=== PATIENT | male | born 1955 | race Caucasian/White ===

== ENCOUNTER 2021-04-26 09:25 | Day surgery (SDC) | payer MEDICARE ==
[~2021-04-26] VITALS: Ht 182.9 cm; Wt 109.9 kg
[2021-04-26] VITALS (8 sets, daily range): BP systolic 143–180; BP diastolic 95–121
[2021-04-26] MEDS ORDERED: sodium bicarbonate (8.4%) inj. 150 ML in dextrose 5%-water 1,000 ML IV ONE (10:05)
[2021-04-26] MEDS ORDERED: diphenhydrAMINE 25mg capsule PO PRN (10:05)
[2021-04-26] MEDS ORDERED: normal saline 1,000 ML IV SCH (10:05)
[2021-04-26 10:53] LABS: BASOPHILS # (AUTO) 0.1 X10'3 (0-0.2); BASOPHILS % (AUTO) 0.9 % (0-1); EOSINOPHILS # (AUTO) 0.2 X10'3 (0-0.9); EOSINOPHILS % (AUTO) 2.5 % (0-6); HEMATOCRIT 44.7 % (42.0-52.0); HEMOGLOBIN 15.3 g/dl (14.0-17.9); LYMPHOCYTES # (AUTO) 1.5 X10'3 (1.1-4.8); LYMPHOCYTES % (AUTO) 20.3 % (21-51); MEAN CORPUSCULAR HEMOGLOBIN 31.2 PG (27.0-31.0); MEAN CORPUSCULAR HGB CONC 34.3 g/dL (33.0-36.5); MEAN CORPUSCULAR VOLUME 90.9 FL (78-98); MEAN PLATELET VOLUME 8.4 FL (7.4-10.4); MONOCYTES # (AUTO) 0.6 X10'3 (0-0.9); MONOCYTES % (AUTO) 7.9 % (2-12); NEUTROPHILS # (AUTO) 4.9 X10'3 (1.8-7.7); NEUTROPHILS % (AUTO) 68.4 % (42-75); PLATELET COUNT 210 X10'3 (140-440); RED BLOOD COUNT 4.92 X10'6 (4.70-6.10); RED CELL DISTRIBUTION WIDTH 14.1 % (11.5-14.5); WHITE BLOOD COUNT 7.2 X10'3 (4.5-11.0)
[2021-04-26 10:59] LABS: ALBUMIN 3.7 G/DL (3.4-5.0); ANION GAP 11 (8-16); BLOOD UREA NITROGEN 12 MG/DL (7-18); CALCIUM 8.4 MG/DL (8.5-10.1); CHLORIDE 108 MMOL/L (99-107); CREATININE 0.86 MG/DL (0.60-1.10); GLUCOSE 97 MG/DL (70-104); MAGNESIUM 1.9 MG/DL (1.5-2.4); POTASSIUM 3.5 MMOL/L (3.5-5.1); SODIUM 145 MMOL/L (135-145); TOTAL CARBON DIOXIDE 25.9 MMOL/L (24-32); eGFR 89 ML/MIN
[2021-04-26] MEDS ORDERED: ASPI-611 PO (11:00)
[2021-04-26] MEDS ORDERED: LOSA50TA3 PO (11:00)
[2021-04-26] MEDS ORDERED: AMLO10TA53 PO (11:00)
[2021-04-26] MEDS ORDERED: METO25TA6 PO (11:00)
[2021-04-26] MEDS ORDERED: ROSU40TA22 PO (11:00)
[2021-04-26] MEDS ORDERED: fentaNYL/PF 50MCG/1 ML 2ML syringe ONE (13:06)
[2021-04-26] MEDS ORDERED: midazolam 1 mg/ML 2ml injection ONE ×3 (13:06→14:25)
[2021-04-26] MEDS ORDERED: iohexol 350 MG/ML 50ML vial IV ONE (13:07)
[2021-04-26] MEDS ORDERED: iohexol 350MG/ML 100ml bottle IV ONE (13:07)
[2021-04-26] MEDS ORDERED: heparin 1,000unit/ml 10ml vial 10 ML ONE ×2 (13:07→14:25)
[2021-04-26] MEDS ORDERED: LIDOcaine 1% (10mg/ml)w/preservative injection 20ml MDV ONE (13:07)
[2021-04-26] MEDS ORDERED: iohexol 350 MG/1 ML 200ml bottle ONE (14:00)
[2021-04-26] MEDS ORDERED: clopidogrel 300mg tablet ONE (14:53)
[2021-04-26] MEDS ORDERED: normal saline 1000ml 1,000 ML IV SCH (15:35)
[2021-04-26] MEDS ORDERED: HYDROcodone/acetaminophen 5mg/325mg tablet PO PRN (15:35)
[2021-04-26] MEDS ORDERED: OXAZEpam 15mg capsule PO PRN (15:35)
[2021-04-26] MEDS ORDERED: proCHLORperazine 10 MG/2 ml inj IV PRN (15:35)
[2021-04-26] MEDS ORDERED: ondansetron/PF 4mg/2ml inj IV PRN (15:35)
[2021-04-26] MEDS ORDERED: HYDROcodone/acetaminophen 10/325mg tab PO PRN (15:35)
== END 2021-04-26 18:11 | disposition home or self-care (01) ==
LOC: SSTAY O 09:25
PROVIDERS: ATTEND Internal Medicine Cardiovascular Disease
DX: R94.39 Abnormal result of other cardiovascular function study (principal); I25.118 Atherosclerotic heart disease of native coronary artery with other forms of angina pectoris; I25.2 Old myocardial infarction; E78.5 Hyperlipidemia, unspecified; I10 Essential (primary) hypertension; M06.9 Rheumatoid arthritis, unspecified; Z79.82 Long term (current) use of aspirin; Z79.899 Other long term (current) drug therapy; Z95.5 Presence of coronary angioplasty implant and graft; Z98.890 Other specified postprocedural states; Z89.429 Acquired absence of other toe(s), unspecified side; Z72.89 Other problems related to lifestyle; Z88.8 Allergy status to other drugs, medicaments and biological substances; Z82.49 Family history of ischemic heart disease and other diseases of the circulatory system; Z80.9 Family history of malignant neoplasm, unspecified
CPT/HCPCS: 36415; 80048; 83735; 85025; 85610; 93005; 93458; 99152; 99153; C1725; C1751; C1760; C1769; C1874; C1894; C9600; J1644; J2001; J2250; J3010; J7030; Q0163; Q9967; A4620

== ENCOUNTER 2022-11-28 08:08 | Day surgery (SDC) | payer MEDICARE ==
[~2022-11-28] VITALS: Ht 180.3 cm; Wt 107.6 kg
[2022-11-28] VITALS (10 sets, daily range): BP systolic 114–142; BP diastolic 71–96
[~2022-11-28 08:08] MED LIST: AMLO10TA53 PO; ASPI-611 PO; LOSA50TA3 PO; METO25TA6 PO; ROSU40TA22 PO
[2022-11-28] MEDS ORDERED: diphenhydrAMINE 25mg capsule PO PRN (08:30)
[2022-11-28] MEDS ORDERED: normal saline 1,000 ML IV SCH (08:30)
[2022-11-28] MEDS ORDERED: CLOP75TA34 PO (08:36)
[2022-11-28 09:33] LABS: BASOPHILS # (AUTO) 0.1 X10'3 (0-0.2); BASOPHILS % (AUTO) 0.9 % (0-1); EOSINOPHILS # (AUTO) 0.1 X10'3 (0-0.9); EOSINOPHILS % (AUTO) 1.6 % (0-6); HEMATOCRIT 42.1 % (42.0-52.0); HEMOGLOBIN 14.6 g/dl (14.0-17.9); LYMPHOCYTES # (AUTO) 1.2 X10'3 (1.1-4.8); LYMPHOCYTES % (AUTO) 15.8 % (21-51); MEAN CORPUSCULAR HEMOGLOBIN 30.9 PG (27.0-31.0); MEAN CORPUSCULAR HGB CONC 34.8 g/dL (33.0-36.5); MONOCYTES # (AUTO) 0.5 X10'3 (0-0.9); MONOCYTES % (AUTO) 6.1 % (2-12); NEUTROPHILS # (AUTO) 5.6 X10'3 (1.8-7.7); NEUTROPHILS % (AUTO) 75.6 % (42-75); PLATELET COUNT 198 X10'3 (140-440); RED BLOOD COUNT 4.73 X10'6 (4.70-6.10); WHITE BLOOD COUNT 7.4 X10'3 (4.5-11.0)
[2022-11-28 09:43] LABS: ALBUMIN 3.8 G/DL (3.4-5.0); ANION GAP 7 (8-16); BLOOD UREA NITROGEN 14 MG/DL (7-18); BUN/CREATININE RATIO 17.7 (5.4-32.0); CALCIUM 8.6 MG/DL (8.5-10.1); CHLORIDE 106 MMOL/L (99-107); CREATININE 0.79 MG/DL (0.60-1.10); GLUCOSE 108 MG/DL (70-104); MAGNESIUM 2.1 MG/DL (1.5-2.4); POTASSIUM 3.3 MMOL/L (3.5-5.1); SODIUM 141 MMOL/L (135-145); TOTAL CARBON DIOXIDE 28.1 MMOL/L (24-32); eGFR > 90 ML/MIN
[2022-11-28] MEDS ORDERED: verapamil 2.5 mg/ml inj IV ONE (10:30)
[2022-11-28] MEDS ORDERED: nitroGLYCERIN-Tridil 50MG/D5W 250 ML IV ONE (10:30)
[2022-11-28] MEDS ORDERED: fentaNYL/PF 50MCG/1 ML 2ML syringe ONE (10:30)
[2022-11-28] MEDS ORDERED: midazolam 1 mg/ML 2ml injection ONE ×2 (10:30→11:14)
[2022-11-28] MEDS ORDERED: heparin 1,000unit/ml 10ml vial 10 ML ONE (10:31)
[2022-11-28] MEDS ORDERED: iohexol 350MG/ML 100ml bottle IV ONE ×2 (10:31→11:32)
[2022-11-28] MEDS ORDERED: LIDOcaine 1% (10mg/ml) 2ml vial ONE (10:31)
[2022-11-28] MEDS ORDERED: iohexol 350 MG/ML 50ML vial IV ONE (10:31)
[2022-11-28] MEDS ORDERED: potassium Cl 20 mEq SR tablet PO STA (10:38)
[2022-11-28] MEDS ORDERED: LIDOcaine 1% 30ml preserv. free vial ONE (11:22)
[2022-11-28] MEDS ORDERED: proCHLORperazine 10 MG/2 ml inj IV PRN (12:55)
[2022-11-28] MEDS ORDERED: HYDROcodone/acetaminophen 5mg/325mg tablet PO PRN (12:55)
[2022-11-28] MEDS ORDERED: HYDROcodone/acetaminophen 10/325mg tab PO PRN (12:55)
[2022-11-28] MEDS ORDERED: ondansetron/PF 4mg/2ml inj IV PRN (12:55)
[2022-11-28] MEDS ORDERED: normal saline 1000ml 1,000 ML IV SCH (12:55)
== END 2022-11-28 16:40 | disposition home or self-care (01) ==
LOC: SSTAY O 08:08
PROVIDERS: ATTEND Internal Medicine Cardiovascular Disease
DX: I25.118 Atherosclerotic heart disease of native coronary artery with other forms of angina pectoris (principal); I25.82 Chronic total occlusion of coronary artery; E78.5 Hyperlipidemia, unspecified; I10 Essential (primary) hypertension; I25.2 Old myocardial infarction; M06.9 Rheumatoid arthritis, unspecified; I87.2 Venous insufficiency (chronic) (peripheral); Z95.5 Presence of coronary angioplasty implant and graft; Z79.82 Long term (current) use of aspirin; Z79.899 Other long term (current) drug therapy; Z79.01 Long term (current) use of anticoagulants; Z88.8 Allergy status to other drugs, medicaments and biological substances; Z98.890 Other specified postprocedural states; Z89.412 Acquired absence of left great toe; Z72.89 Other problems related to lifestyle; Z82.49 Family history of ischemic heart disease and other diseases of the circulatory system
CPT/HCPCS: 36415; 80048; 83735; 85025; 85610; 93005; 93458; 99152; 99153; A6258; C1751; C1760; C1769; C1892; C1894; C9607; J1644; J2250; J3010; J3490; J7030; Q0163; Q9967; A6402

== ENCOUNTER 2025-02-21 06:33 | Day surgery (SDC) | payer MEDICARE ==
[~2025-02-21] VITALS: Ht 180.3 cm; Wt 100.4 kg
[2025-02-21] VITALS (11 sets, daily range): BP systolic 109–136; BP diastolic 72–84; PULSE 55–66; RESP 14–20; TEMP 98.5; O2SAT 92–97
[~2025-02-21 06:33] MED LIST changes: +CLOP75TA34 PO; +LOSA-416 PO; -LOSA50TA3 PO; -ROSU40TA22 PO; +ROSU40TA89 PO
[2025-02-21 07:47] LABS: ALBUMIN 3.7 G/DL (3.4-5.0); ANION GAP 10 (8-16); BLOOD UREA NITROGEN 12 MG/DL (7-18); CALCIUM 8.5 MG/DL (8.5-10.1); CHLORIDE 110 MMOL/L (99-107); CREATININE 0.92 MG/DL (0.60-1.10); GLUCOSE 95 MG/DL (70-104); MAGNESIUM 2.1 MG/DL (1.5-2.4); POTASSIUM 3.7 MMOL/L (3.5-5.1); PROTHROMBIN TIME 10.5 SECONDS (9.0-12.0); SODIUM 147 MMOL/L (135-145); TOTAL CARBON DIOXIDE 27.3 MMOL/L (24-32); eCRCL 80 ML/MIN; eGFR 81 ML/MIN
[2025-02-21] MEDS: normal saline 1,000 ML IV SCH (07:59)
[2025-02-21] MEDS: diphenhydrAMINE 25mg capsule PO PRN (08:00)
--- NOTE | 2025-02-21 08:00 | ELECTROCARDIOGRAPH REPORT ---
[facility] Test Date: 2025-02-21 Test Time: 07:57:10 Pat Name: SAL JIMENEZ Department: [facility] O Patient ID: [id number] Room: Gender: M Banquet Chef: JAIMEE : 1955 Requested By: ISABELLA RODRIGUEZ Order Number: [id number] Reading MD: Dr. ANDREAS Mane Measurements Intervals [place] Rate: 57 P: 19 SD: 200 QRS: -22 QRSD: 113 T: 49 QT: 433 QTc: 422 Interpretive Statements Sinus bradycardia Ventricular premature complex Borderline intraventricular conduction delay Borderline ST elevation, anterior leads Electronically Signed On 02-21-2025 19:49:[address] ANDREAS Mane Please click the below link to view image of tracing.
[2025-02-21 08:08] LABS: BASOPHILS % (AUTO) 0.8 % (0-1); EOSINOPHILS # (AUTO) 0.1 X10'3 (0-0.9); EOSINOPHILS % (AUTO) 2.5 % (0-6); HEMOGLOBIN 15.2 g/dl (14.0-17.9); LYMPHOCYTES # (AUTO) 1.4 X10'3 (1.1-4.8); LYMPHOCYTES % (AUTO) 29.5 % (21-51); MEAN CORPUSCULAR HEMOGLOBIN 31.1 PG (27.0-31.0); MEAN CORPUSCULAR HGB CONC 34.5 g/dL (33.0-36.5); MEAN CORPUSCULAR VOLUME 90.2 FL (78-98); MEAN PLATELET VOLUME 8.4 FL (7.4-10.4); MONOCYTES # (AUTO) 0.4 X10'3 (0-0.9); MONOCYTES % (AUTO) 9.1 % (2-12); NEUTROPHILS # (AUTO) 2.8 X10'3 (1.8-7.7); NEUTROPHILS % (AUTO) 58.1 % (42-75); PLATELET COUNT 211 X10'3 (140-440); RED BLOOD COUNT 4.88 X10'6 (4.70-6.10); RED CELL DISTRIBUTION WIDTH 13.9 % (11.5-14.5); WHITE BLOOD COUNT 4.9 X10'3 (4.5-11.0)
[2025-02-21] MEDS ORDERED: LOSA-415 PO (08:30)
[2025-02-21] MEDS ORDERED: AMLO-314 PO (08:30)
[2025-02-21] MEDS ORDERED: NITR0.4T48 SL (08:30)
[2025-02-21] MEDS ORDERED: FINA5TAB11 PO (08:30)
[2025-02-21] MEDS ORDERED: verapamil 2.5 mg/ml inj IV ONE (08:47)
[2025-02-21] MEDS ORDERED: LIDOcaine 1% (10mg/ml) 2ml vial ONE (08:47)
[2025-02-21] MEDS ORDERED: midazolam 1 mg/ML 2ml injection ONE ×2 (08:47→09:42)
[2025-02-21] MEDS ORDERED: fentaNYL/PF 50MCG/1 ML 2ML syringe ONE (08:47)
[2025-02-21] MEDS ORDERED: iohexol 350 MG/ML 50ML vial IV ONE ×2 (08:48→10:11)
[2025-02-21] MEDS ORDERED: iohexol 350MG/ML 100ml bottle IV ONE (08:48)
[2025-02-21] MEDS ORDERED: heparin 1,000unit/ml 10ml vial 10 ML ONE (08:48)
[2025-02-21] MEDS ORDERED: nitroGLYCERIN 500mcg/5mL D5W 5 ML IV ONE (08:48)
[2025-02-21] MEDS: sodium bicarbonate 1meq/ml syr 150 ML in dextrose 5%-water 1,000 ML IV ONE (08:55)
[2025-02-21] MEDS ORDERED: LIDOcaine 1% 30ml preserv. free vial ONE (09:30)
[2025-02-21] MEDS ORDERED: ondansetron/PF 4mg/2ml inj IV PRN (10:55)
[2025-02-21] MEDS ORDERED: HYDROcodone/acetaminophen 10/325mg tab PO PRN (10:55)
[2025-02-21] MEDS ORDERED: proCHLORperazine 10 MG/2 ml inj IV PRN (10:55)
[2025-02-21] MEDS ORDERED: HYDROcodone/acetaminophen 5mg/325mg tablet PO PRN (10:55)
--- NOTE | 2025-02-21 12:09 | CARDIOLOGY REPORT ---
DATE OF SERVICE: 02/21/2025 DICTATING PHYSICIAN: ISABELLA RODRIGUEZ DO CARDIAC CATHETERIZATION REPORT REFERRING PHYSICIAN: Danyelle Chacon MD CLINICAL HISTORY: This 70-year-old man has a rather prolonged history of coronary artery disease. He has had a previous AR and stents have been placed to two large LAD diagonals and to the distal right coronary artery. He also has a chronically occluded large obtuse marginal branch. He has had some recent recurrence of chest pain prompting this repeat angiographic study. PROCEDURES PERFORMED: * Left heart catheterization. * Left ventriculography. * Selective coronary arteriography. * Percutaneous arteriotomy closure (Perclose) * 60 minutes of conscious sedation supervision. DESCRIPTION OF PROCEDURE: The patient was sedated with fentanyl and Versed. He was then prepared and draped in the usual manner. The right inguinal area was infiltrated with 1% lidocaine using a micropuncture set and a Seldinger technique, a short 7-Luxembourgish sheath was placed in the common femoral artery. Later, because of tortuosity of the common iliac artery, the short sheath was replaced with a 45 cm destination sheath; 3000 units of heparin were given. Left heart catheterization and left ventriculography were performed using a 6-Luxembourgish pigtail catheter. Coronary arteriography was performed using first a #4 and later a #5, 6-Luxembourgish left Juan Carlos catheter for the left coronary and a #4 right Juan Carlos catheter for the right coronary artery. The arterial puncture site was successfully Perclosed. RESULTS: HEMODYNAMIC DATA: The left ventricular end diastolic pressure was 17 mmHg. LEFT VENTRICULOGRAM: The left ventriculogram was technically satisfactory. There was generalized [id number] hypokinesis, but a subsegment of the anterolateral wall appeared to be akinetic. Stents were visible in the proximal, in the mid LAD, and in the distal RCA. CORONARY ARTERIOGRAPHY: The coronary arteriograms were technically satisfactory. The patient had a right dominant system. LEFT MAIN CORONARY ARTERY: The left main was a large, unobstructed vessel bifurcating into left anterior descending and circumflex coronary arteries. The distal left main was narrowed by about 30%. LEFT ANTERIOR DESCENDING CORONARY ARTERY: The LAD was a large vessel that did not have a transapical distribution. There were two very large diagonal branches taking their origin proximally. Stents were visible in the two diagonals and proximally within the proximal-most LAD. Just beyond the stents within the LAD, there was about a 30%-40% narrowing in an area that does not contain a stent. All stented areas were widely patent. CIRCUMFLEX CORONARY ARTERY: The circumflex was what amounted to a small vessel with a stent in a proximal obtuse marginal that is now totally occluded. There was a tiny second obtuse marginal and no posterolateral branches. The ongoing small caliber atrioventricular groove vessel (just after the occluded obtuse marginal) appeared to be narrowed by about 90% but as already noted the single very tiny second obtuse marginal is unlikely to benefit from a PCI of this lesion. RIGHT CORONARY ARTERY: The right coronary was a large main stem vessel. There was a large posterior descending branch, a uzsdw-tr-joykay sized first posterolateral branch, and two small caliber terminal posterolateral branches. There were no obstructive lesions in the right coronary artery. There is a widely patent stent in the posterior descending branch. CONCLUSIONS: * No new obstructive coronary artery disease. The patient once again had widely patent stents in the LAD, two large diagonals, and in the RCA PDA. * There remains a chronically occluded, large obtuse marginal branch, which at one time appears to have been stented. * Left ventricular function is mildly reduced. The estimated LVEF was 45%. RECOMMENDATIONS: Ongoing medical therapy. ISABELLA RODRIGUEZ DO TID: [id number] RECEIPT: [id number] LES MTDIndy
== END 2025-02-21 14:10 | disposition home or self-care (01) ==
LOC: SSTAY O 06:33
PROVIDERS: ATTEND Internal Medicine Cardiovascular Disease
DX: I25.118 Atherosclerotic heart disease of native coronary artery with other forms of angina pectoris (principal); I10 Essential (primary) hypertension; I25.5 Ischemic cardiomyopathy; E78.5 Hyperlipidemia, unspecified; M06.9 Rheumatoid arthritis, unspecified; I87.2 Venous insufficiency (chronic) (peripheral); J84.10 Pulmonary fibrosis, unspecified; I25.2 Old myocardial infarction; Z79.82 Long term (current) use of aspirin; Z79.899 Other long term (current) drug therapy; Z88.8 Allergy status to other drugs, medicaments and biological substances; I49.3 Ventricular premature depolarization
CPT/HCPCS: 36415; 80048; 83735; 85025; 85610; 93005; 93458; 93567; 99152; 99153; A6258; C1760; C1769; C1894; J1644; J2003; J2250; J3010; J3490; J7030; J7070; Q0163; Q9967; Z7610